=== PATIENT | male | born 1970 | race Hispanic/Latino ===

== ENCOUNTER 2017-09-10 09:32 | Emergency (ER) | payer MEDICAID ==
[2017-09-10] MEDS ORDERED: Sodium Chloride 0.9% 1,000 ML IV STA (09:56)
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
[2017-09-10] MEDS ORDERED: ceFAZolin 2 GM in Sodium Chloride 0.9% 100 ML IVPB ONE (10:00)
[2017-09-10] MEDS ORDERED: ceFAZolin 2 GM in Sodium Chloride 0.9% 100 ML IVPB SCH (10:00)
[2017-09-10 10:04] VITALS: TEMP 98.4
[2017-09-10 10:26] LABS: BASO # 0.03 K/mm3 (0.0-2.0); BASO % 0.5 % (0.0-3.0); EOS # 0.1 (0.0-0.7); EOS % 1.4 % (1.5-5.0); GRAN # 3.55 (1.4-6.5); GRAN % 56.6 % (50.0-68.0); HEMATOCRIT 40.3 % (42.0-52.0); LYMPH % 32.3 % (22.0-35.0); MEAN CELL VOLUME 89.6 fl (80.0-105.0); MEAN CORPUSCULAR HEMOGLOBIN 30.2 pg (25.0-35.0); MEAN CORPUSCULAR HGB CONC 33.7 g/dl (31.0-37.0); MEAN PLATELET VOLUME 8.2 fl (7.0-11.0); MONO # 0.6 (0.1-0.6); MONO % 9.2 % (1.0-6.0); RED CELL DISTRIBUTION WIDTH 13.1 % (11.5-14.5); WHITE BLOOD COUNT 6.3 10^3/ul (4.5-11.0)
[2017-09-10 10:34] LABS: BILIRUBIN,TOTAL 0.5 mg/dL (0.2-1.3); CALCIUM 8.3 mg/dL (8.4-10.5); GFR AFRICAN-AMERICAN > 60; GLUCOSE,RANDOM 109 mg/dL (70-110)
[2017-09-10 10:41] LABS: ALKALINE PHOSPHATASE 63 U/L (38-126); ALT/SGPT 55 U/L (7-56); AST/SGOT 111 U/L (17-59); BLOOD UREA NITROGEN 13 mg/dL (7-21); CARBON DIOXIDE 23 mmol/L (21-33); CHLORIDE 104 mmol/L (98-107); MAGNESIUM 2.2 mg/dL (1.7-2.2); POTASSIUM 4.3 mmol/L (3.6-5.0); SODIUM 136 mmol/L (132-148); TOTAL PROTEIN 7.2 g/dL (5.8-8.3)
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
[2017-09-10 14:16] VITALS: BP 112/86; PULSE 78; RESP 18; O2SAT 99
--- NOTE | 2017-09-11 00:14 | CARD ---
APPROVED REPORT EKG Measurement Heart [id number] <Conclusion> Normal sinus rhythm Normal ECG
== END 2017-09-10 14:16 | disposition home or self-care (01) ==
LOC: ED 09:32 → MERGE 09:32 → ED 14:16
DX: F10.129 Alcohol abuse with intoxication, unspecified (principal); S00.81XA Abrasion of other part of head, initial encounter; S00.31XA Abrasion of nose, initial encounter; Y04.0XXA Assault by unarmed brawl or fight, initial encounter; Y92.410 Unspecified street and highway as the place of occurrence of the external cause; Z51.89 Encounter for other specified aftercare; R04.0 Epistaxis; E11.9 Type 2 diabetes mellitus without complications; I10 Essential (primary) hypertension
CPT/HCPCS: 70450; 70486; 72125; 73130; 80053; 80320; 80324; 80329; 80345; 80346; 80349; 80353; 80358; 80361; 82550; 82553; 82948; 83735; 83992; 85025; 93005; 96365; 99285; J0690; J7040